=== PATIENT | male | born 1970 | race Caucasian/White ===

== ENCOUNTER 2016-04-17 16:58 | Emergency (ER) | payer SELFPAY ==
--- NOTE | 2016-04-17 18:40 | DIAGNOSTIC IMAGING REPORT ---
PROCEDURE: XR ABDOMEN 1 VIEW UPRIGHT INDICATION: ABDOMINAL PAIN TECHNIQUE: AP supine view. COMPARISON: None. FINDINGS: Mild gaseous distention of the colon with fluid level in right lower cecum (may be within normal limits). Small bowel pattern is normal. No evidence of free air. Status post cholecystectomy (surgical clips). Soft tissues and osseous structures are normal. IMPRESSION: 1. Mild gaseous distention of the colon is nonspecific pattern). 2. Status post cholecystectomy. 3. Otherwise negative abdomen.
--- NOTE | 2016-04-17 19:33 | ED CLINICAL REPORT ---
Clinical Report - Physicians/Mid Levels [facility] [address] [place] [address] 04/17/2016 17:01 Patient: TARA DOWNEY Time Seen: 17:54 Apr 17 2016. Arrived- By private vehicle. Historian- patient. CPT: ER phys charges level 4 (#[id number]). HISTORY OF PRESENT ILLNESS Chief Complaint: NAUSEA, VOMITING, ABDOMINAL PAIN and DIARRHEA LUQ abdominal pain. ( Poor po intake due to emesis.). At its maximum, severity described as moderate. When seen in the E.D., severity described as moderate. Modifying factors- worsened by movement and food. Not relieved by anything. 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 The patient has had loss of appetite, fatigue and weakness. Similar symptoms previously: None. Recent medical care: Not recently seen/assessed. REVIEW OF SYSTEMS No fever, sore throat, sinus drainage, nasal congestion or cough. No difficulty breathing, chest pain, black stools, bloody stools or chills. No difficulty with urination, skin rash, back pain, calf pain or headache. No blackouts. The patient has had abdominal pain. The pain is described as located in the left upper quadrant and nausea. He has had moderate vomiting (for 2 days). The vomiting has occurred several times. He has had mild diarrhea. This has occurred twice. Mild numbness around distal tongue and right lower lip although this is where he has a constant wad of chewing tobacco. All systems otherwise negative, except as recorded above. PAST HISTORY Abdominal Hernia. Brain Tumor. Abdominal Pain. Nephrolithiasis. Brain tumors removed. SOCIAL HISTORY Never smoker. No alcohol use or drug use. chews tobacco. ADDITIONAL NOTES The nursing notes have been reviewed. PHYSICAL EXAM Vital Signs: 04/17/2016 17:17 BP: 135/83. HR: 82. RR: 16. O2 saturation: 97%. Temp: 99.1 F. Pain level now: 3/10. Appearance: Alert. Patient in mild distress. Eyes: Eyes normal inspection. ENT: Dry mucous membranes present. Pharynx normal. Neck: Normal inspection. Neck supple. CVS: Normal heart rate and rhythm. Heart sounds normal. Pulses normal. Respiratory: No respiratory distress. Breath sounds normal. Chest nontender. Abdomen: No visible injury. Soft. Mild tenderness in the epigastric area and left upper quadrant. Bowel sounds normal. Back: Normal inspection. Skin: Skin warm. Normal skin color. No rash. Extremities: Extremities exhibit normal ROM. No lower extremity edema. Neuro: Oriented X 3. No motor deficit. No sensory deficit. LABS, X-RAYS, AND EKG KUB: Normal abdominal study. Laboratory Tests: CBC w Diff: (VICTOR MANUEL: 04/17/2016 18:25) ( MsgRcvd 04/17/2016 18:37) Final results Test Result Flag Units (Reference) WHITE BLOOD COUNT 5.0 K/uL (4.5-11.5) RED BLOOD COUNT 5.40 M/uL (4.50-5.90) HEMOGLOBIN 15.4 gm/dL (13.5-17.5) HEMATOCRIT 45.7 % (41.0-53.0) MEAN CELL VOLUME 85 fL (80-100) MEAN CORPUSCULAR HGB 28 pg (26-34) MEAN CORPUSCULAR HGB CONC 34 g/dL (31-37) RED CELL DISTRIBUTION WIDTH 13.1 % (11.6-14.8) PLATELET COUNT 196 K/uL (150-400) NEUTROPHIL % 50.7 % (50-75) LYMPH % 32.4 % (25-40) MONO % 13.8 % (3-14) EOSINOPHIL % 2.8 % (0-4) BASOPHIL % 0.3 % (0-2) CMP: (VICTOR MANUEL: 04/17/2016 18:25) ( MsgRcvd 04/17/2016 18:50) Final results Test Result Flag Units (Reference) GLUCOSE 95 mg/dL (70-110) BUN 24 H mg/dL (7-18) CREATININE 0.9 mg/dL (0.6-1.3) Estimated GFR >60 mL/min Estimated GFR- >60 mL/min Note: Persistent reduction over 3 months in eGFR<60 mL/min/1.73 m2 defines CKD. Patients with eGFR values>=60 mL/min/1.73 m2 may also have CKD if evidence ofpersistent proteinuria. Additional information may be foundat www.kidney.org. SODIUM 144 mmol/L (136-145) POTASSIUM 3.4 L mmol/L (3.5-5.1) CHLORIDE 108 H mmol/L (98-107) CARBON DIOXIDE 27 mmol/L (21-32) CALCIUM 7.6 L mg/dL (8.5-10.1) TOTAL PROTEIN 6.6 g/dL (6.4-8.2) ALBUMIN 3.5 g/dL (3.3-5.0) BILIRUBIN, TOTAL 1.3 H mg/dL (0.0-1.0) ALKALINE PHOSPHATASE 46 U/L (46-116) AST (SGOT) 20 U/L (15-37) ALT (SGPT) 32 U/L (12-78) LIPASE 193 U/L (73-393) AMYLASE 45 U/L (25-115) . PROGRESS AND PROCEDURES Course of Care: IV NS Zofran 4 mg IV Patient is stable. Symptoms better. Discussed need to follow up with neurologist for tongue and lip numbness given the history of brain tumor removal. Patient/family counseled. Disposition: Discharged. Condition: stable. CLINICAL IMPRESSION Acute viral gastroenteritis. INSTRUCTIONS Do not work for two days until better. Take clear liquids only (frequent sips) for the next 24 hours until better. Advance diet as tolerated. Warnings: Further evaluation is necessary. GENERAL WARNINGS: Return or contact your physician immediately if your condition worsens or changes unexpectedly, if not improving as expected, or if other problems arise. Prescription Medications: Zofran (orally disintegrating tablets) 4 mg: take 1 orally every 6 hours as needed for nausea. Dispense fifteen (15). No refill. Substitution is permissible. Tylenol with Codeine Tylenol #3 (30 mg / 300 mg) : take 1-2 tablets orally every 6 hours as needed for pain. Dispense ten (10). No refill. Substitution is permissible. Follow-up: Follow up with your doctor in two days even if well. Call for an appointment. Understanding of the discharge instructions verbalized by patient. (Electronically signed by Tara Sahu MD 04/18/2016 14:00)
--- NOTE | 2016-04-17 19:33 | ED NURSING NOTES ---
Clinical Report - Nurses [facility] [address] [place] [address] 04/17/2016 17:01 Patient: TARA DOWNEY TRIAGE Triage time 17:15 Apr 17 2016. Acuity: LEVEL 3. Chief Complaint: ABDOMINAL PAIN, NAUSEA, VOMITING and DIARRHEA and (mouth numbness and some dysphagia.). Alert. CARLOS MANUEL COMA SCORE: [place] Coma Scale: 15- eyes open spontaneously (4); best verbal response- oriented x 4 (5); best motor response- obeys commands (6). --17:26 Shahab Eaton R.N. 17:17 04/17/16. BP: 135/83. HR: 82. RR: 16. O2 saturation: 97% on room air. Temp: 99.1 F (oral). Pain level now: 10. Additional comments: LUQ. --17:26 Shahab Eaton R.N. Weight: 102 kg stated. Height/Length: 73 inches Per Patient. BMI: 29.7. --17:26 Shahab Eaton R.N. Medications None. --17:23 Shahab Eaton R.N. Allergies Percocet. Definite Moderate(nausea) --17:24 Shahab Eaton R.N. Vicodin. Definite Moderate(nausea) --17:24 Shahab Eaton R.N. History Arrived by private vehicle. Historian: patient. Accompanied by friend. Primary physician (none). ( Abdominal Pain associated with N/V/D. He also has numbness in his mouth and along his gums (he has a wad of chewing tobacco in his mouth presently).). Onset. (about 4 days ago). He has had nausea, vomiting, diarrhea and abdominal pain. Last oral intake by patient was (about 5 hours ago). Treatment ORDER EDITOR: None. PAST MEDICAL HX: Immunizations: up-to-date. SOCIAL HX: Smoker- current status unknown (Chews Tobacco). No alcohol use or drug use. No recent travel. No infectious disease exposure. ABUSE ASSESSMENT: No report of abuse. FALL RISK ASSESSMENT: Fall risk assessment completed. No fall risk identified. NUTRITIONAL RISK ASSESSMENT: The nutritional risk assessment revealed no deficiencies. FUNCTIONAL ASSESSMENT: Functional assessment: no impairments noted. LEARNING NEEDS ASSESSMENT: The learning needs assessment revealed no barriers. SKIN INTEGRITY ASSESSMENT: Skin integrity risk assessment completed. No skin integrity risk identified. --17:26 Shahab Eaton R.N. PROBLEMS: Abdominal Hernia. Brain Tumor. Abdominal Pain. Nephrolithiasis. --17:24 Shahab Eaton R.N. ADDITIONAL SURGERIES: Brain tumors removed. --17:24 Shahab Eaton R.N. Interventions ID and allergy band on patient. To treatment room. --17:26 Shahab Eaton R.N. PHYSICAL ASSESSMENT Ambulatory to room. GENERAL / NEURO / PSYCH: Alert. Oriented X 4. HEENT: Mucous membranes are pink. RESPIRATORY: Respirations not labored. CVS: Normal sinus rhythm noted. GI / : Abdominal tenderness in the left upper quadrant. SKIN: Skin is warm and dry. --17:26 Shahab Eaton R.N. NURSING PROGRESS NOTES Patient gowned. Reassurance given. Patient identifiers checked. Call light placed in reach. Side rails up x 1. Bed placed in lowest position. Brakes of bed on. Patient ready for evaluation- chart flagged and ED physician notified. --17:27 Shahab Eaton R.N. 18:15 04/17/16. Patient transported to radiology by stretcher with tech. --18:17 Shahab Eaton R.N. 18:25 04/17/2016 Site #1 started via IV in the right hand with an 20g angiocath, with aseptic technique and good blood return; one attempt. Blood drawn: rainbow set. Labeled in the presence of the patient and sent to the lab. --18:33 Shahab Eaton R.N. 18:25 04/17/2016 Started bag #1 1000 mL IV Fluids IV NS (Saline); at 1000 mL/hr over 60 minute(s) via site #1. Allergies verified and confirmed 5 rights. IV patency established. IV site checked: no pain, redness, or swelling. IV flushed thoroughly pre- and post-medication administration. --18:34 Shahab Eaton R.N. 19:30 04/17/2016 IV Fluids IV NS Bag Change: bag #1 infused. Total amount infused: 1000. STARTED bag #2 (1000 mL) at 500 mL/hr via IV pump. Confirmed 5 rights. IV patency established. IV site checked: no pain, redness, or swelling. IV flushed thoroughly. --19:51 Shahab Eaton R.N. 19:35 04/17/2016 Zofran (Ondansetron HCl) IVP 4 mg given over 2 minute(s) via site #1. Allergies verified and confirmed 5 rights. IV patency established. IV site checked: no pain, redness, or swelling. IV flushed thoroughly pre- and post-medication administration. IVP given by RN. --19:52 Shahab Eaton R.N. 19:45 04/17/2016 Site #1 removed upon discharge. Catheter intact. --20:41 Shahab Eaton R.N. 20:45 04/17/2016 IV Fluids IV NS Discontinued: bag #2 infused. Total amount infused: 250 mL. IV patency established. IV site checked: no pain, redness, or swelling. IV flushed thoroughly. --20:40 Shahab Eaton R.N. DISPOSITION / DISCHARGE <<STRICKEN ENTRY-- 20:33 04/17/16. BP: 117/70. HR: 73. RR: 16. O2 saturation: 96% on room air. Temp: 98.7 F (oral). Pain level now: 04/19. --20:36 Shahab Eaton R.N. --END STRIKE>> Correction. --20:37 Shahab Eaton R.N. Departure time: 1944. --20:36 Shahab Eaton R.N. 19:40 04/17/16. BP: 117/70. HR: 73 (regular and normal rate). RR: 16. O2 saturation: 96% on room air. Temp: 98.7 F (oral). --20:39 Shahab Eaton R.N. 19:45. Condition at departure: improved. No learning barriers present. Discharge instructions provided and reviewed with the patient. Reviewed medication(s) dosing and course information (prescription given to pt). Reviewed referral to family practice for followup. Patient verbalized understanding. Written instructions provided in Spanish. The patient was discharged by the physician. He was discharged home and accompanied by colorer hides and skins. He left the Emergency Department ambulatory and via private vehicle. Animal Physiology Teacher driving. --20:44 Shahab Eaton R.N. 19:45 04/17/16. Pain level now: 04/19. --20:46 Shahab Eaton R.N. Locked/Released at 04/17/2016 20:49 by Shahab Eaton R.N.
--- NOTE | 2016-04-17 19:33 | ED NURSING NOTES ---
Clinical Report - Nurses [facility] [address] [place] [address] 04/17/2016 17:01 Patient: TAAR DOWNEY TRIAGE Triage time 17:15 Apr 17 2016. Acuity: LEVEL 3. Chief Complaint: ABDOMINAL PAIN, NAUSEA, VOMITING and DIARRHEA and (mouth numbness and some dysphagia.). Alert. CARLOS MANUEL COMA SCORE: [place] Coma Scale: 15- eyes open spontaneously (4); best verbal response- oriented x 4 (5); best motor response- obeys commands (6). --17:26 Shahab Eaton R.N. 17:17 04/17/16. BP: 135/83. HR: 82. RR: 16. O2 saturation: 97% on room air. Temp: 99.1 F (oral). Pain level now: 10. Additional comments: LUQ. --17:26 Shahab Eaton R.N. Weight: 102 kg stated. Height/Length: 73 inches Per Patient. BMI: 29.7. --17:26 Shahab Eaton R.N. Medications None. --17:23 Shahab Eaton R.N. Allergies Percocet. Definite Moderate(nausea) --17:24 Shahab Eaton R.N. Vicodin. Definite Moderate(nausea) --17:24 Shahab Eaton R.N. History Arrived by private vehicle. Historian: patient. Accompanied by friend. Primary physician (none). ( Abdominal Pain associated with N/V/D. He also has numbness in his mouth and along his gums (he has a wad of chewing tobacco in his mouth presently).). Onset. (about 4 days ago). He has had nausea, vomiting, diarrhea and abdominal pain. Last oral intake by patient was (about 5 hours ago). 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 PAST MEDICAL HX: Immunizations: up-to-date. SOCIAL HX: Smoker- current status unknown (Chews Tobacco). No alcohol use or drug use. No recent travel. No infectious disease exposure. ABUSE ASSESSMENT: No report of abuse. FALL RISK ASSESSMENT: Fall risk assessment completed. No fall risk identified. NUTRITIONAL RISK ASSESSMENT: The nutritional risk assessment revealed no deficiencies. FUNCTIONAL ASSESSMENT: Functional assessment: no impairments noted. LEARNING NEEDS ASSESSMENT: The learning needs assessment revealed no barriers. SKIN INTEGRITY ASSESSMENT: Skin integrity risk assessment completed. No skin integrity risk identified. --17:26 Shahab Eaton R.N. PROBLEMS: Abdominal Hernia. Brain Tumor. Abdominal Pain. Nephrolithiasis. --17:24 Shahab Eaton R.N. ADDITIONAL SURGERIES: Brain tumors removed. --17:24 Shahab Eaton R.N. Interventions ID and allergy band on patient. To treatment room. --17:26 Shahab Eaton R.N. PHYSICAL ASSESSMENT Ambulatory to room. GENERAL / NEURO / PSYCH: Alert. Oriented X 4. HEENT: Mucous membranes are pink. RESPIRATORY: Respirations not labored. CVS: Normal sinus rhythm noted. GI / : Abdominal tenderness in the left upper quadrant. SKIN: Skin is warm and dry. --17:26 Shahab Eaton R.N. NURSING PROGRESS NOTES Patient gowned. Reassurance given. Patient identifiers checked. Call light placed in reach. Side rails up x 1. Bed placed in lowest position. Brakes of bed on. Patient ready for evaluation- chart flagged and ED physician notified. --17:27 Shahab Eaton R.N. 18:15 04/17/16. Patient transported to radiology by stretcher with tech. --18:17 Shahab Eaton R.N. 18:25 04/17/2016 Site #1 started via IV in the right hand with an 20g angiocath, with aseptic technique and good blood return; one attempt. Blood drawn: rainbow set. Labeled in the presence of the patient and sent to the lab. --18:33 Shahab Eaton R.N. 18:25 04/17/2016 Started bag #1 1000 mL IV Fluids IV NS (Saline); at 1000 mL/hr over 60 minute(s) via site #1. Allergies verified and confirmed 5 rights. IV patency established. IV site checked: no pain, redness, or swelling. IV flushed thoroughly pre- and post-medication administration. --18:34 Shahab Eaton R.N. 19:30 04/17/2016 IV Fluids IV NS Bag Change: bag #1 infused. Total amount infused: 1000. STARTED bag #2 (1000 mL) at 500 mL/hr via IV pump. Confirmed 5 rights. IV patency established. IV site checked: no pain, redness, or swelling. IV flushed thoroughly. --19:51 Shahab Eaton R.N. 19:35 04/17/2016 Zofran (Ondansetron HCl) IVP 4 mg given over 2 minute(s) via site #1. Allergies verified and confirmed 5 rights. IV patency established. IV site checked: no pain, redness, or swelling. IV flushed thoroughly pre- and post-medication administration. IVP given by RN. --19:52 Shahab Eaton R.N. 19:45 04/17/2016 Site #1 removed upon discharge. Catheter intact. --20:41 Shahab Eaton R.N. 20:45 04/17/2016 IV Fluids IV NS Discontinued: bag #2 infused. Total amount infused: 250 mL. IV patency established. IV site checked: no pain, redness, or swelling. IV flushed thoroughly. --20:40 Shahab Eaton R.N. DISPOSITION / DISCHARGE <<STRICKEN ENTRY-- 20:33 04/17/16. BP: 117/70. HR: 73. RR: 16. O2 saturation: 96% on room air. Temp: 98.7 F (oral). Pain level now: 04/19. --20:36 Shahab Eaton R.N. --END STRIKE>> Correction. --20:37 Shahab Eaton R.N. Departure time: 1944. --20:36 Shahab Eaton R.N. 19:40 04/17/16. BP: 117/70. HR: 73 (regular and normal rate). RR: 16. O2 saturation: 96% on room air. Temp: 98.7 F (oral). --20:39 Shahab Eaton R.N. 19:45. Condition at departure: improved. No learning barriers present. Discharge instructions provided and reviewed with the patient. Reviewed medication(s) dosing and course information (prescription given to pt). Reviewed referral to family practice for followup. Patient verbalized understanding. Written instructions provided in Slovak. The patient was discharged by the physician. He was discharged home and accompanied by van driver. He left the Emergency Department ambulatory and via private vehicle. Bleach Boiler Puller driving. --20:44 Shahab Eaton R.N. 19:45 04/17/16. Pain level now: 04/19. --20:46 Shahab Eaton R.N. Locked/Released at 04/17/2016 20:49 by Shahab Eaton R.N.
--- NOTE | 2016-04-17 19:33 | ED CLINICAL REPORT ---
Clinical Report - Physicians/Mid Levels [facility] [address] [place] [address] 04/17/2016 17:01 Patient: TARA DOWNEY Time Seen: 17:54 Apr 17 2016. Arrived- By private vehicle. Historian- patient. CPT: ER phys charges level 4 (#[id number]). HISTORY OF PRESENT ILLNESS Chief Complaint: NAUSEA, VOMITING, ABDOMINAL PAIN and DIARRHEA LUQ abdominal pain. ( Poor po intake due to emesis.). At its maximum, severity described as moderate. When seen in the E.D., severity described as moderate. Modifying factors- worsened by movement and food. Not relieved by anything. 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 The patient has had loss of appetite, fatigue and weakness. Similar symptoms previously: None. Recent medical care: Not recently seen/assessed. REVIEW OF SYSTEMS No fever, sore throat, sinus drainage, nasal congestion or cough. No difficulty breathing, chest pain, black stools, bloody stools or chills. No difficulty with urination, skin rash, back pain, calf pain or headache. No blackouts. The patient has had abdominal pain. The pain is described as located in the left upper quadrant and nausea. He has had moderate vomiting (for 2 days). The vomiting has occurred several times. He has had mild diarrhea. This has occurred twice. Mild numbness around distal tongue and right lower lip although this is where he has a constant wad of chewing tobacco. All systems otherwise negative, except as recorded above. PAST HISTORY Abdominal Hernia. Brain Tumor. Abdominal Pain. Nephrolithiasis. Brain tumors removed. SOCIAL HISTORY Never smoker. No alcohol use or drug use. chews tobacco. ADDITIONAL NOTES The nursing notes have been reviewed. PHYSICAL EXAM Vital Signs: 04/17/2016 17:17 BP: 135/83. HR: 82. RR: 16. O2 saturation: 97%. Temp: 99.1 F. Pain level now: 3/10. Appearance: Alert. Patient in mild distress. Eyes: Eyes normal inspection. ENT: Dry mucous membranes present. Pharynx normal. Neck: Normal inspection. Neck supple. CVS: Normal heart rate and rhythm. Heart sounds normal. Pulses normal. Respiratory: No respiratory distress. Breath sounds normal. Chest nontender. Abdomen: No visible injury. Soft. Mild tenderness in the epigastric area and left upper quadrant. Bowel sounds normal. Back: Normal inspection. Skin: Skin warm. Normal skin color. No rash. Extremities: Extremities exhibit normal ROM. No lower extremity edema. Neuro: Oriented X 3. No motor deficit. No sensory deficit. LABS, X-RAYS, AND EKG KUB: Normal abdominal study. Laboratory Tests: CBC w Diff: (VICTOR MANUEL: 04/17/2016 18:25) ( MsgRcvd 04/17/2016 18:37) Final results Test Result Flag Units (Reference) WHITE BLOOD COUNT 5.0 K/uL (4.5-11.5) RED BLOOD COUNT 5.40 M/uL (4.50-5.90) HEMOGLOBIN 15.4 gm/dL (13.5-17.5) HEMATOCRIT 45.7 % (41.0-53.0) MEAN CELL VOLUME 85 fL (80-100) MEAN CORPUSCULAR HGB 28 pg (26-34) MEAN CORPUSCULAR HGB CONC 34 g/dL (31-37) RED CELL DISTRIBUTION WIDTH 13.1 % (11.6-14.8) PLATELET COUNT 196 K/uL (150-400) NEUTROPHIL % 50.7 % (50-75) LYMPH % 32.4 % (25-40) MONO % 13.8 % (3-14) EOSINOPHIL % 2.8 % (0-4) BASOPHIL % 0.3 % (0-2) CMP: (VICTOR MANUEL: 04/17/2016 18:25) ( MsgRcvd 04/17/2016 18:50) Final results Test Result Flag Units (Reference) GLUCOSE 95 mg/dL (70-110) BUN 24 H mg/dL (7-18) CREATININE 0.9 mg/dL (0.6-1.3) Estimated GFR >60 mL/min Estimated GFR- >60 mL/min Note: Persistent reduction over 3 months in eGFR<60 mL/min/1.73 m2 defines CKD. Patients with eGFR values>=60 mL/min/1.73 m2 may also have CKD if evidence ofpersistent proteinuria. Additional information may be foundat www.kidney.org. SODIUM 144 mmol/L (136-145) POTASSIUM 3.4 L mmol/L (3.5-5.1) CHLORIDE 108 H mmol/L (98-107) CARBON DIOXIDE 27 mmol/L (21-32) CALCIUM 7.6 L mg/dL (8.5-10.1) TOTAL PROTEIN 6.6 g/dL (6.4-8.2) ALBUMIN 3.5 g/dL (3.3-5.0) BILIRUBIN, TOTAL 1.3 H mg/dL (0.0-1.0) ALKALINE PHOSPHATASE 46 U/L (46-116) AST (SGOT) 20 U/L (15-37) ALT (SGPT) 32 U/L (12-78) LIPASE 193 U/L (73-393) AMYLASE 45 U/L (25-115) . PROGRESS AND PROCEDURES Course of Care: IV NS Zofran 4 mg IV Patient is stable. Symptoms better. Discussed need to follow up with neurologist for tongue and lip numbness given the history of brain tumor removal. Patient/family counseled. Disposition: Discharged. Condition: stable. CLINICAL IMPRESSION Acute viral gastroenteritis. INSTRUCTIONS Do not work for two days until better. Take clear liquids only (frequent sips) for the next 24 hours until better. Advance diet as tolerated. Warnings: Further evaluation is necessary. GENERAL WARNINGS: Return or contact your physician immediately if your condition worsens or changes unexpectedly, if not improving as expected, or if other problems arise. Prescription Medications: Zofran (orally disintegrating tablets) 4 mg: take 1 orally every 6 hours as needed for nausea. Dispense fifteen (15). No refill. Substitution is permissible. Tylenol with Codeine Tylenol #3 (30 mg / 300 mg) : take 1-2 tablets orally every 6 hours as needed for pain. Dispense ten (10). No refill. Substitution is permissible. Follow-up: Follow up with your doctor in two days even if well. Call for an appointment. Understanding of the discharge instructions verbalized by patient. (Electronically signed by Tara Sahu MD 04/18/2016 14:00)
--- NOTE | 2016-04-17 19:34 | ED ORDER SUMMARY ---
..... Patient: TARA DOWNEY OrderSheet [facility] VisitID: [id number] [place] [address] 45y, M Registration Date/Time: 04/17/2016 ORDER SHEET Weight: 102.0 kg (stated) Allergies: Percocet, Vicodin GENERAL ORDERS: Abdomen 1V Upright Urgent (18:11 04/17/2016 Walt CELESTE) (Ack 18:15 LMuller) (18:16 Tc R.N.) CBC w Diff Urgent (18:11 04/17/2016 Walt CELESTE) (Ack 18:15 LMuller) (18:34 Tc R.N.) CMP Urgent (18:04/17/2016 Walt CELESTE) (Ack 18:15 LMuller) (18:34 Tc R.N.) Amylase Urgent (18:04/17/2016 Walt CELESTE) (Ack 18:15 LMuller) (18:34 Tc R.N.) Lipase Urgent (18:11 04/17/2016 Walt CELESTE) (Ack 18:15 LMuller) (18:34 Tc R.N.) MEDICATION ORDERS: IV FLUIDS: IV NS : initial bolus 1000 mL (1000 mL/hr), then 500 mL/hr for 2h (NOW); Routine (18:11 04/17/2016 Walt CELESTE) (18:34 Tc R.N.) Zofran IV 4 mg (NOW) (19:22 04/17/2016 Walt CELESTE) (19:52 Tc R.N.) ORDER SHEET NOTES: [Electronically signed by Shahab Eaton R.N. (20:49 04/17/2016)] [Electronically signed by Tara Sahu MD (14:00 04/18/2016)] [Electronically locked/signed by Shahab Eaton R.N. (20:49 04/17/2016)]
--- NOTE | 2016-04-17 19:34 | ED ORDER SUMMARY ---
..... Patient: TARA DOWNEY OrderSheet [facility] VisitID: [id number] [place] [address] 45y, M Registration Date/Time: 04/17/2016 ORDER SHEET Weight: 102.0 kg (stated) Allergies: Percocet, Vicodin GENERAL ORDERS: Abdomen 1V Upright Urgent (18:11 04/17/2016 Walt CELESTE) (Ack 18:15 LMuller) (18:16 Tc R.N.) CBC w Diff Urgent (18:11 04/17/2016 Walt CELESTE) (Ack 18:15 LMuller) (18:34 Tc R.N.) CMP Urgent (18:04/17/2016 Walt CELESTE) (Ack 18:15 LMuller) (18:34 Tc R.N.) Amylase Urgent (18:04/17/2016 Walt CELESTE) (Ack 18:15 LMuller) (18:34 Tc R.N.) Lipase Urgent (18:11 04/17/2016 Walt CELESTE) (Ack 18:15 LMuller) (18:34 Tc R.N.) MEDICATION ORDERS: IV FLUIDS: IV NS : initial bolus 1000 mL (1000 mL/hr), then 500 mL/hr for 2h (NOW); Routine (18:11 04/17/2016 Walt CELESTE) (18:34 Tc R.N.) Zofran IV 4 mg (NOW) (19:22 04/17/2016 Walt CELESTE) (19:52 Tc R.N.) ORDER SHEET NOTES: [Electronically signed by Shahab Eaton R.N. (20:49 04/17/2016)] [Electronically signed by Tara Sahu MD (14:00 04/18/2016)] [Electronically locked/signed by Shahab Eaton R.N. (20:49 04/17/2016)]
--- NOTE | 2016-04-18 14:00 | ED DISCHARGE INSTRUCTIONS ---
Patient: TARA DOWNEY General Instructions [facility] VisitID: [id number] [place] [address] 45y, M Registration Date/Time: 04/17/2016 Acute viral gastroenteritis. INSTRUCTIONS Do not work for two days until better. Take clear liquids only (frequent sips) for the next 24 hours until better. Advance diet as tolerated. Warnings: Further evaluation is necessary. GENERAL WARNINGS: Return or contact your physician immediately if your condition worsens or changes unexpectedly, if not improving as expected, or if other problems arise. Prescription Medications: Zofran (orally disintegrating tablets) 4 mg: take 1 orally every 6 hours as needed for nausea. Dispense fifteen (15). No refill. Substitution is permissible. Tylenol with Codeine Tylenol #3 (30 mg / 300 mg) : take 1-2 tablets orally every 6 hours as needed for pain. Dispense ten (10). No refill. Substitution is permissible. Follow-up: Follow up with your doctor in two days even if well. Call for an appointment. Understanding of the discharge instructions verbalized by patient. ADDITIONAL INFORMATION Viral Gastroenteritis (6Yr-Adult) Gastroenteritis is another name for thestomach flu.It is most often caused by a virus that affects the stomach and intestinal tract. Symptoms include stomach cramping and fever, vomiting and/or diarrhea, and can last from 2 to 7 days. The danger from repeated vomiting or diarrhea is dehydration. This is the loss of too much water and minerals from the body. When this occurs, body fluids must be replaced. Antibiotics are not effective for this illness, but simple home treatment will be helpful. Home Care If symptoms are severe, rest at home for the next 24 hours. Avoid tobacco, caffeine, and alcohol use, which can worsen symptoms. Acetaminophen (Tylenol) or ibuprofen (Motrin, Advil) may be usedfor fever or pain unless another medication was prescribed. NOTE: If you have chronic liver or kidney disease or ever had a stomach ulcer or GI bleeding, talk with your doctor before using these medicines. Aspirin should never be used in anyone under 18 years of age who is ill with a fever. It may cause severe liver damage. If medicines for diarrhea or vomiting were prescribed, be sure they are takenonly as directed. If vomiting, drink small amounts of clear fluids (such as water, sports drinks, clear sodas) at frequent intervals to prevent dehydration. Start with 1 to 2 tablespoons every 10 minutes. Once vomiting stops, follow these guidelines: During The First 12 To 24 Hours follow the diet below: Beverages: Sport drinks like Gatorade, soft drinks without caffeine; marielena deidra, mineral water (plain or flavored), decaffeinated tea and coffee. Soups: Clear broth, consomm and bouillon Desserts: Plain gelatin (Jell-O), Popsicles and fruit juice bars. During The Next 24 Hours you may add the following to the above: Hot cereal, plain toast, bread, rolls, crackers Plain noodles, rice, mashed potatoes, chicken noodle or rice soup Unsweetened canned fruit (avoid pineapple), bananas Limit fat intake to less than 15 grams per day by avoiding margarine, butter, oils, mayonnaise, sauces, gravies, fried foods, peanut butter, meat, poultry, and fish. Limit fiber; avoid raw or cooked vegetables, fresh fruits (except bananas), and bran cereals. Limit caffeine and chocolate. Do not use spices or seasonings except salt. During The Next 24 Hours The patient can gradually resume a normal diet as symptoms lessen. Preventing Spread Hand washing with soap and water is the best way to prevent the spread of viruses. Caregivers should wash their hands before andafter touching the sick person. The sick person, as well as everyone in the family,should wash their hands after using the toilet and before meals. Clean the toilet after each use. People with diarrhea should not prepare food for others. If you are preparing your own foods, wash your hands before and after. Follow Up with your doctor as advised. Call your doctor if you are not improving over the next 2 to 3 days. If a stool (diarrhea) sample was taken, you may call in 2 days (or as directed) for the results. Get Prompt Medical Attention if any of the following occur: Increasing abdominal pain Continued vomiting (unable to keep liquids down) Frequent diarrhea (more than 5 times a day) Blood in vomit or stool (black or red color) Dark urine, reduced urine output, or extreme thirst Weakness, dizziness, fainting Drowsiness, confusion, stiff neck, or seizure Fever of 100.4F (38C) oral or higher, not better with fever medication New rash Clear Liquid Diet Clear liquids are any liquid that you can see through as well as those that are very easy to digest. This is used while the body is recovering from irritation or infection of the stomach or intestinal tract. It may also be used before special procedures or surgery. This diet is to be used no more than three days. You may include the following items. Adults Adults should drink a total of 23 quarts of liquid per day. It may be easier to drink small frequent servings rather than a few large ones. Liquids can include: Fruit juices.Strained orange juice or lemonade (no pulp), apple, grape and cranberry juice, clear fruit drinks, sports drinks Beverages.Sport drinks, sodas, mineral water (plain or flavored), tea, black coffee, liquid gelatin (add twice the recommended amount of water) Soups.Clear broth, consomm, bouillon Desserts.Plain gelatin, popsicles, fruit juice bars Children Over 2 years old The following liquids are acceptable for children over age 2: Fruit juices.Strained orange juice or lemonade (no pulp), apple, grape and cranberry juice, clear fruit drinks Beverages. Sports drinks, sodas, mineral water (plain or flavored), tea, liquid gelatin (add twice the recommended amount of water) Soups. Clear broth, consomm, bouillon Desserts. Plain gelatin, popsicles, fruit juice bars Children under 2 years old Oral rehydration fluids such are available at drug stores and most grocery stores without a prescription. Ondansetron Oral disintegrating tablet What is this medicine? ONDANSETRON (on AIDE se [place]) is used to treat nausea and vomiting caused by chemotherapy. It is also used to prevent or treat nausea and vomiting after surgery. How should I use this medicine? These tablets are made to dissolve in the mouth. Do not try to push the tablet through the foil backing. With dry hands, peel away the foil backing and gently remove the tablet. Place the tablet in the mouth and allow it to dissolve, then swallow. While you may take these tablets with water, it is not necessary to do so. Talk to your modeler regarding the use of this medicine in children. Special care may be needed. What side effects may I notice from receiving this medicine? Side effects that you should report to your doctor or health child care education coordinator as soon as possible: allergic reactions like skin rash, itching or hives, swelling of the face, lips, or tongue breathing problems dizziness fast or irregular heartbeat feeling faint or lightheaded, falls fever and chills swelling of the hands and feet tightness in the chest Side effects that usually do not require medical attention (report to your doctor or health child care education coordinator if they continue or are bothersome): constipation or diarrhea headache What may interact with this medicine? Do not take this medicine with any of the following medications: -apomorphine -cisapride -dofetilide -dronedarone -pimozide -thioridazine -ziprasidone This medicine may also interact with the following medications: -carbamazepine -phenytoin -rifampicin -tramadol -other medicines that prolong the QT interval (cause an abnormal heart rhythm) What if I miss a dose? If you miss a dose, take it as soon as you can. If it is almost time for your next dose, take only that dose. Do not take double or extra doses. Where should I keep my medicine? Keep out of the reach of children. Store between 2 and 30 degrees C (36 and 86 degrees F). Throw away any unused medicine after the expiration date. What should I tell my health care provider before I take this medicine? They need to know if you have any of these conditions: heart disease history of irregular heartbeat liver disease low levels of magnesium or potassium in the blood an unusual or allergic reaction to ondansetron, granisetron, other medicines, foods, dyes, or preservatives or trying to get breast-feeding What should I watch for while using this medicine? Check with your doctor or health child care education coordinator as soon as you can if you have any sign of an allergic reaction. Acetaminophen, Codeine Phosphate Oral tablet What is this medicine? ACETAMINOPHEN; CODEINE (a set a DIAMOND ruth fen; KOE jimi) is a pain reliever. It is used to treat mild to moderate pain. How should I use this medicine? Take this medicine by mouth with a full glass of water. Follow the directions on the prescription label. If the medicine upsets your stomach, take the medicine with food or milk. Do not take more medicine than you are told to take. Talk to your modeler regarding the use of this medicine in children. Special care may be needed. What side effects may I notice from receiving this medicine? Side effects that you should report to your doctor or health child care education coordinator as soon as possible: allergic reactions like skin rash, itching or hives, swelling of the face, lips, or tongue breathing difficulties, wheezing confusion light headedness or fainting spells severe stomach pain yellowing of the skin or the whites of the eyes Side effects that usually do not require medical attention (report to your doctor or health child care education coordinator if they continue or are bothersome): dizziness drowsiness nausea, vomiting What may interact with this medicine? alcohol antihistamines benztropine drugs for bladder problems like solifenacin, trospium, oxybutynin, tolterodine, hycosamine, and methscopolamine drugs for breathing problems like ipratropium and tiotropium drugs for certain stomach or intestine problems like propantheline, homatropine methylbromide, glycopyrrolate, atropine, belladonna, and dicyclomine medicines for depression, anxiety, or psychotic disturbances medicines for sleep muscle relaxants naltrexone narcotic medicines (opiates) for pain phenothiazines like perphenazine, thioridazine, chlorpromazine, mesoridazine, fluphenazine, prochlorperazine, promazine, trifluoperazine scopolamine tramadol trihexyphenidyl What if I miss a dose? If you miss a dose, take it as soon as you can. If it is almost time for your next dose, take only that dose. Do not take double or extra doses. Where should I keep my medicine? Keep out of the reach of children. This medicine can be abused. Keep your medicine in a safe place to protect it from theft. Do not share this medicine with anyone. Selling or giving away this medicine is dangerous and against the law. Store at room temperature between 15 and 30 degrees C (59 and 86 degrees F). Protect from light. Keep container tightly closed. Throw away any unused medicine after the expiration date. Discard unused medicine and used packaging carefully. Pets and children can be harmed if they find used or lost packages. What should I tell my health care provider before I take this medicine? They need to know if you have any of these conditions: brain tumor Crohn's disease, inflammatory bowel disease, or ulcerative colitis drink more than 3 alcohol containing drinks per day drug abuse or addiction head injury heart or circulation problems kidney disease or problems going to the bathroom liver disease lung disease, asthma, or breathing problems an unusual or allergic reaction to acetaminophen, codeine, salicylates, other opioid analgesics, other medicines, foods, dyes, or preservatives or trying to get breast-feeding What should I watch for while using this medicine? Tell your doctor or health child care education coordinator if your pain does not go away, if it gets worse, or if you have new or a different type of pain. You may develop tolerance to the medication. Tolerance means that you will need a higher dose of the medication for pain relief. Tolerance is normal and is expected if you take the medicine for a long time. Do not suddenly stop taking your medicine because you may develop a severe reaction. Your body becomes used to the medicine. This does NOT mean you are addicted. Addiction is a behavior related to getting and using a drug for a non medical reason. If you have pain, you have a medical reason to take pain medicine. Your doctor will tell you how much medicine to take. If your doctor wants you to stop the medicine, the dose will be slowly lowered over time to avoid any side effects. You may get drowsy or dizzy. Do not drive, use machinery, or do anything that needs mental alertness until you know how this medicine affects you. Do not stand or sit up quickly, especially if you are an older patient. This reduces the risk of dizzy or fainting spells. Alcohol may interfere with the effect of this medicine. Avoid alcoholic drinks. There are different types of narcotic medicines (opiates) for pain. If you take more than one type at the same time, you may have more side effects. Give your health care provider a list of all medicines you use. Your doctor will tell you how much medicine to take. Do not take more medicine than directed. Call emergency for help if you have problems breathing. The medicine will cause constipation. Try to have a bowel movement at least every 2 to 3 days. If you do not have a bowel movement for 3 days, call your doctor or health child care education coordinator. Do not take Tylenol (acetaminophen) or medicines that have acetaminophen with this medicine. Too much acetaminophen can be very dangerous. Many nonprescription medicines contain acetaminophen. Always read the labels carefully to avoid taking more acetaminophen. Immediately call your physician or get emergency help if you are breast-feeding and your baby is sleepier than usual, is limp, or has difficulty or breathing. You have been given the following additional information: Gastroenteritis, Viral (6Y-Adult) Diet, Clear Liquid Ondansetron Oral disintegrating tablet Acetaminophen, Codeine Phosphate Oral tablet Do not work for two days until better. (Electronically signed by Tara Sahu MD 04/18/2016 14:00)
--- NOTE | 2016-04-18 14:00 | ED MAR SUMMARY ---
..... Medication Administration Record [facility] [address] [place] [address] Patient: TARA DOWNEY Visit ID: [id number] 45y, M Weight: 102.0 kg Height/Length: 73 in BMI: 29.7 ALLERGIES: Vicodin, Percocet Start 18:25 04/17/2016 Shahab Eaton RBertinN., Stop 20:45 04/17/2016 Shahab Eaton R.N. Medication Administered: IV NS (SALINE), Dose: IV Fluids over 60 minute(s), Rate: 1000 mL/hr, Dispensed: 1000 mL bag, Site: #1 right hand. Medication Ordered: IV NS : initial bolus 1000 mL (1000 mL/hr), then 500 mL/hr for 2h (NOW); Routine. Given 19:35 04/17/2016 Shahab Eaton, RBertinN. Medication Administered: ZOFRAN [IVP] (ONDANSETRON HCL), Dose: 4 mg IVP over 2 minute(s), Site: #1 right hand. Medication Ordered: Zofran IV 4 mg (NOW).
--- NOTE | 2016-04-18 14:00 | ED MAR SUMMARY ---
..... Medication Administration Record [facility] [address] [place] [address] Patient: TARA DOWNEY Visit ID: [id number] 45y, M Weight: 102.0 kg Height/Length: 73 in BMI: 29.7 ALLERGIES: Vicodin, Percocet Start 18:25 04/17/2016 Shahab Eaton RBertinN., Stop 20:45 04/17/2016 Shahab Eaton R.N. Medication Administered: IV NS (SALINE), Dose: IV Fluids over 60 minute(s), Rate: 1000 mL/hr, Dispensed: 1000 mL bag, Site: #1 right hand. Medication Ordered: IV NS : initial bolus 1000 mL (1000 mL/hr), then 500 mL/hr for 2h (NOW); Routine. Given 19:35 04/17/2016 Shahab Eaton, RBertinN. Medication Administered: ZOFRAN [IVP] (ONDANSETRON HCL), Dose: 4 mg IVP over 2 minute(s), Site: #1 right hand. Medication Ordered: Zofran IV 4 mg (NOW).
--- NOTE | 2016-04-18 14:00 | ED MED RECONCILIATION SUMMARY ---
Patient: NASREENTARA Medication Reconciliation Report [facility] VisitID: [id number] [address] [place] [address] 45y, M Registration Date/Time: 04/17/2016 Weight: 102.0 kg Height/Length: 73 in. BMI: 29.7 ALLERGIES: Percocet, Vicodin The patient's Home Medications are listed below: NONE. The source(s) of the original Home Medication information: Not obtained. The following Medications were given to the patient in the Emergency Department: IV NS IV Fluids bolus 0, then 1000 mL/hr, administered: 04/17/2016 6:25:00 PM Zofran [IVP] IVP 4 mg, administered: 04/17/2016 7:35:00 PM The following Medications were prescribed to the patient: Zofran (orally disintegrating tablets) 4 mg: take 1 orally every 6 hours as needed for nausea. Dispense fifteen (15). No refill. Substitution is permissible. -- Tara Sahu MD Tylenol with Codeine Tylenol #3 (30 mg / 300 mg) : take 1-2 tablets orally every 6 hours as needed for pain. Dispense ten (10). No refill. Substitution is permissible. -- Tara Sahu MD
--- NOTE | 2016-04-18 14:00 | ED MED RECONCILIATION SUMMARY ---
Patient: NASREENTARA Medication Reconciliation Report [facility] VisitID: [id number] [address] [place] [address] 45y, M Registration Date/Time: 04/17/2016 Weight: 102.0 kg Height/Length: 73 in. BMI: 29.7 ALLERGIES: Percocet, Vicodin The patient's Home Medications are listed below: NONE. The source(s) of the original Home Medication information: Not obtained. The following Medications were given to the patient in the Emergency Department: IV NS IV Fluids bolus 0, then 1000 mL/hr, administered: 04/17/2016 6:25:00 PM Zofran [IVP] IVP 4 mg, administered: 04/17/2016 7:35:00 PM The following Medications were prescribed to the patient: Zofran (orally disintegrating tablets) 4 mg: take 1 orally every 6 hours as needed for nausea. Dispense fifteen (15). No refill. Substitution is permissible. -- Tara Sahu MD Tylenol with Codeine Tylenol #3 (30 mg / 300 mg) : take 1-2 tablets orally every 6 hours as needed for pain. Dispense ten (10). No refill. Substitution is permissible. -- Tara Sahu MD
== END 2016-04-17 19:45 | disposition home or self-care (01) ==
LOC: ED SRH 16:58
DX: A08.4 Viral intestinal infection, unspecified (principal)
CPT/HCPCS: 90100; 92235; 92530; 95059